=== PATIENT | male | born 1975 | race Caucasian/White ===

== ENCOUNTER 2017-07-01 19:04 | Emergency (ER) | payer OTHER ==
[~2017-07-01] VITALS: Ht 152.4 cm; Wt 63.5 kg
[~2017-07-01 19:04] MED LIST: FLEXERIL PO; IBUPROFEN 800800 M1 PO; NORCO 5-325 TA1 EACH PO; PREDNISONE50 MG PO
[2017-07-01 19:41] LABS: ABSOLUTE BASOPHILS 0.1 thou/uL (0.0-0.2); ABSOLUTE EOSINOPHILS 0.6 thou/uL (0.0-0.7); ABSOLUTE LYMPHOCYTES 3.6 thou/uL (0.8-5.3); ABSOLUTE MONOCYTES 0.7 thou/uL (0.0-1.2); ABSOLUTE NEUTROPHILS 3.5 thou/uL (1.6-8.1); BASOPHILS 0.8 %; EOSINOPHILS 7.6 %; HEMATOCRIT 44.9 % (42.0-52.0); HEMOGLOBIN 15.6 gm/dL (14.0-18.0); LYMPHOCYTES 42.1 %; MCH 32.2 pg (26.0-34.0); MCHC 34.6 g/dL (28.0-37.0); MCV 92.9 fL (80.0-100.0); MONOCYTES 8.5 %; MPV 8.1 fl. (7.2-11.1); NUCLEATED RBCS 0 /100WBC; PLATELET COUNT* 251 thou/uL (150-400); RBC 4.84 mil/uL (4.50-6.00); RDW-CV 13.3 % (10.5-14.5); WBC 8.5 thou/uL (4.0-11.0)
[2017-07-01 19:51] LABS: ANION GAP 14 mmol/L (7-16); BUN 10 mg/dL (7-18); CALCIUM 8.5 mg/dL (8.5-10.1); CHLORIDE 103 mmol/L (98-107); CO2 23 mmol/L (21-32); CREATININE 0.8 mg/dL (0.6-1.3); GLUCOSE 100 mg/dL (70-99); SODIUM 140 mmol/L (136-145)
[2017-07-01 19:57] LABS: ALBUMIN 3.6 g/dL (3.4-5.0); ALKALINE PHOSPHATASE 116 U/L (46-116); SGOT 31 U/L (15-37); SGPT 37 U/L (30-65); TOTAL BILIRUBIN 0.4 mg/dL (<0.1-1.0); TOTAL PROTEIN 7.9 g/dL (6.4-8.2); TROPONIN-I LEVEL <0.06 ng/mL (<0.06)
[2017-07-01 20:20] LABS: AMP/METHAMP Negative (Negative); BARBITURATES Negative (Negative); BENZODIAZEPINES Negative (Negative); COCAINE Negative (Negative); METHADONE Negative (Negative); OPIATES Negative (Negative); PCP Negative (Negative); THC Negative (Negative)
[2017-07-01 21:11] VITALS: BP 140/105
--- NOTE | 2017-07-02 16:40 | EKG ---
[place] [address] ELECTROCARDIOGRAM REPORT Name: FILEMON LAL [facility] Nuno#: [id number] Admission: 07/01/17 Attend Phys: Discharge: 07/01/17 Date of : 75 Report #: [id number] THIS REPORT FOR: //name// [facility] ED Test Date: 2017-07-01 Test Time: 20:08:20 Pat Name: FILEMON LAL Department: Room: Gender: M Game Room Attendant: 17 : 1975 Requested By: Gilda Gomez Order Number: [id number] MD: Raul Mckeon Measurements Intervals Burton Rate: 119 P: 52 VA: 160 QRS: 51 QRSD: 87 T: 57 QT: 332 QTc: 468 Interpretive Statements Sinus tachycardia No previous ECG available for comparison Electronically Signed On 07-02-2017 16:40:39 CDT by Raul Mckeon [email or web address] <ELECTRONICALLY SIGNED> By: Raul Mckeon MD, [facility] 07/02/17 1640 07 07 Raul Mckeon MD, FACC /EPI
== END 2017-07-01 21:13 | disposition home or self-care (01) ==
LOC: M.ERS 19:04
PROVIDERS: Emergency Medicine
DX: F10.129 Alcohol abuse with intoxication, unspecified (principal); F17.210 Nicotine dependence, cigarettes, uncomplicated